=== PATIENT | female | born 1990 | race Caucasian/White ===

== ENCOUNTER 2023-01-25 19:05 | Emergency (ER) | payer OTHER ==
[~2023-01-25] VITALS: Ht 154.9 cm; Wt 85.3 kg
[2023-01-25 19:29] VITALS: BP 139/93
[2023-01-25] MEDS ORDERED: NACL 0.9% 1,000 ML IV ONE (19:50)
--- NOTE | 2023-01-25 20:00 | NUR ---
pt c/o palpitations. "my heart rate at home was 121" pmh : possible anxiety
--- NOTE | 2023-01-25 20:05 | NUR ---
PT IS ALERT AND ORIENTED X4. NO ACUTE DISTRESS NOTED.
[2023-01-25] MEDS ORDERED: ATA25 PO (21:04)
[2023-01-25 21:35] VITALS: BP 134/68
== END 2023-01-25 21:39 | disposition home or self-care (01) ==
LOC: MED 19:05
DX: R00.2 Palpitations (principal); F43.9 Reaction to severe stress, unspecified; Z79.899 Other long term (current) drug therapy; Z90.49 Acquired absence of other specified parts of digestive tract
CPT/HCPCS: 93005; 99283

== ENCOUNTER 2023-05-28 22:51 | Emergency (ER) | payer OTHER ==
[~2023-05-28] VITALS: Ht 154.9 cm; Wt 78.9 kg
[~2023-05-28 22:51] MED LIST: ATA25 PO
[2023-05-28 23:12] VITALS: BP 140/69; PULSE 91; RESP 18; TEMP 98.2; O2SAT 99
[2023-05-29 01:16] LABS: FLU A ANTIGEN negative (NEGATIVE); FLU B ANTIGEN NEGATIVE (NEGATIVE)
[2023-05-29 02:00] VITALS: BP 130/60; PULSE 91; RESP 18; TEMP 98.2; O2SAT 99
== END 2023-05-29 02:00 | disposition home or self-care (01) ==
LOC: MED 22:51
DX: J02.9 Acute pharyngitis, unspecified (principal); R42 Dizziness and giddiness; Z20.822 Contact with and (suspected) exposure to COVID-19; Z79.899 Other long term (current) drug therapy
CPT/HCPCS: 87081; 93005; 99284

== ENCOUNTER 2023-06-13 17:56 | Emergency (ER) | payer OTHER ==
[~2023-06-13] VITALS: Ht 154.9 cm; Wt 78.9 kg
[2023-06-13 17:58] VITALS: BP 115/72; PULSE 107; RESP 22; TEMP 98.4; O2SAT 99
[2023-06-13] MEDS ORDERED: NACL 0.9% 1,000 ML IV ONE (18:20)
[2023-06-13 18:43] LABS: BASOPHILS # (AUTO) 0.1 K/uL (0.00-0.22); BASOPHILS % (AUTO) 0.8 % (0.0-2.0); EOSINOPHILS # (AUTO) 0.2 K/uL (0-0.4); EOSINOPHILS % (AUTO) 2.1 % (0.0-4.0); HEMATOCRIT 35.3 % (36-48); HEMOGLOBIN 11.6 g/dL (12.0-16.0); LYMPHOCYTES # (AUTO) 2.7 K/uL (2.5-16.5); LYMPHOCYTES % (AUTO) 32.4 % (20.5-51.1); MEAN CORPUSCULAR HEMOGLOBIN 27 pg (27-31); MEAN CORPUSCULAR HGB CONC 33 g/dL (33-37); MEAN CORPUSCULAR VOLUME 80.5 fL (80-94); MONOCYTES # (AUTO) 0.8 K/uL (0.8-1.0); MONOCYTES % (AUTO) 9.5 % (1.7-9.3); NEUTROPHILS # (AUTO) 4.7 K/uL (1.8-7.7); NEUTROPHILS % (AUTO) 55.2 % (42.2-75.2); PLATELET COUNT (AUTO) 417 K/uL (140-450); RED BLOOD CELL COUNT(AUTO) 4.38 MIL/uL (4.20-5.40); RED CELL DISTRIBUTION WIDTH 14.5 % (11.6-13.7); WHITE BLOOD COUNT (AUTO) 8.4 K/uL (4.8-10.8)
[2023-06-13 18:59] LABS: ANION GAP 13.6 (8-16); CALCIUM 8.8 mg/dL (8.5-10.1); CARBON DIOXIDE 26.8 mmol/L (21-32); CREATININE 0.9 mg/dL (0.6-1.3); POTASSIUM 3.4 mmol/L (3.5-5.1)
[2023-06-13 19:05] LABS: APPEARANCE,URINE CLEAR (CLEAR); BILIRUBIN,URINE NEGATIVE (NEGATIVE); BLOOD, URINE NEGATIVE (NEGATIVE); COLOR,URINE YELLOW (YELLOW); LEUKOCYTE ESTERASE ,URINE NEGATIVE (NEGATIVE); NITRITE, URINE NEGATIVE (NEGATIVE); PH,URINE 6.5 (5.0-9.0); PROTEIN,URINE NEGATIVE (NEGATIVE); UGLUCOSE NEGATIVE (NEGATIVE); UROBILINOGEN,URINE 0.2 EU/dL (0.2 - 1)
[2023-06-13] MEDS ORDERED: IBUP-2213 PO (19:34)
[2023-06-13 20:40] VITALS: BP 115/72; PULSE 107; RESP 22; TEMP 98.4; O2SAT 99
== END 2023-06-13 20:40 | disposition home or self-care (01) ==
LOC: MED 17:56
DX: R42 Dizziness and giddiness (principal); R20.0 Anesthesia of skin; Z79.899 Other long term (current) drug therapy
CPT/HCPCS: 36415; 80048; 81003; 85025; 93005; 96360; 99284; J7030